=== PATIENT | female | born 1975 | race Caucasian/White ===

== ENCOUNTER → 2018-03-16 16:44 | Outpatient (CLI) | payer MEDICAID, SELFPAY ==
[2018-03-16 19:02] LABS: Chlamydia Trachomatis by PCR Negative (Negative); Neisserai gonorrhoeae by PCR Negative (Negative); Probe Check PASS; Sample Adequacy Control PASS; Specimen Processing Control PASS
== END ==
PROVIDERS: Visit Provider Obstetrics & Gynecology
DX: Z11.3 Encounter for screening for infections with a predominantly sexual mode of transmission (principal)
CPT/HCPCS: 87491; 87591

== ENCOUNTER → 2018-04-13 10:41 | Outpatient (CLI) | payer MEDICAID, SELFPAY ==
[2018-04-13 13:39] LABS: Absolute Lymphocyte Count 1.23 X10^3/ul (0.83-4.51); Absolute Neutrophil Count 8.4 X10^3/uL (2.0-7.7); Basophil# 0.02 X10^3/uL; Basophil% 0.2 % (0-1); Eosinophil# 0.05 X10^3/uL; Eosinophils% 0.5 % (0-5); Hematocrit 40.6 % (37-47); Hemoglobin 13.5 g/dl (12.0-15.0); Lymphocyte # 1.23 X10^3/ul (4.0); Mean Corp Hgb Conc 33.3 g/gl (32-36); Mean Corpuscular Hgb 28.8 pg (27.0-32.0); Mean Corpuscular Volume 86.6 fL (81-99); Mean Platelet Vol. 10.1 fl (6.2-12.0); Monocyte# 0.49 X10^3/uL; Monocyte% 4.8 % (0-10); Neutrophil # 8.42 X10^3/uL (2.7-7.7); Neutrophil % 82.4 % (47-70); POSITIVE COUNT NO; POSITIVE DIFFERENTIAL NO; POSITIVE MORPHOLOGY NO; Platelet Count 251 K/mm3 (150-450); RBC Distribution Width CV 14.1 % (11.6-14.6); RBC Distribution Width SD 44.1 fl (35.1-43.9); Red Blood Count 4.69 M/mm3 (4.2-5.4); White Blood Count 10.2 K/mm3 (4.4-11.0)
[2018-04-13 13:41] LABS: Color, Urine Yellow (Yellow); Glucose, Dipstick Normal (Normal); Ketone-Dipstick Negative (Negative); Leukocyte Esterase-Dipstick Negative /ul (Negative); Nitrite-Dipstick Negative (Negative); Occult Blood-Urine Negative /ul (Negative); Protein-Dipstick Negative (Negative); Specific Gravity, Urine 1.005 (1.002-1.030); Urine Bilirubin Dipstick Negative (Negative); Urine Clarity Clear (Clear); Urine Urobilinogen Normal (Normal)
[2018-04-13 13:56] LABS: Amphetamine Urine VISTA NEGATIVE (<1000 ng/mL); Barbiturate Urine VISTA NEGATIVE (< 200 ng/mL); Benzodiazepine Urine VISTA NEGATIVE (< 200 ng/mL); Cocaine Urine VISTA NEGATIVE (< 300 ng/mL); Ecstacy Urine VISTA NEGATIVE (< 500 ng/mL); Methadone Urine VISTA NEGATIVE (< 300 ng/mL); PCP Urine VISTA NEGATIVE (< 25 ng/mL); THC Urine VISTA NEGATIVE (< 50 ng/mL); Vista UDS pH Range 7
[2018-04-13 14:02] LABS: Thyroid Stim Hormone (TSH) 0.96 uIU/mL (0.358-3.74)
[2018-04-13 14:43] LABS: HIV - WCH Non-Reactive (Nonreactive); Rubella IgG 87.5 IU/mL
[2018-04-14 03:04] LABS: COTININE Drug Screen Positive (<200 ng/mL)
[2018-04-14 11:13] LABS: HEPATITIS B SURFACE AG Negative (Negative); Hep C Antibodies <0.1 s/co ratio (0.0-0.9)
[2018-04-19 22:00] LABS: Prenatal RPR NONREACTIVE (NONREACTIVE)
== END ==
PROVIDERS: Visit Provider Obstetrics & Gynecology
DX: Z34.82 Encounter for supervision of other normal pregnancy, second trimester (principal)
CPT/HCPCS: 36415; 80307; 81002; 84443; 85025; 86703; 86762; 86803; 87340

== ENCOUNTER → 2018-06-11 | Outpatient (CLI) | payer MEDICAID, SELFPAY ==
[2018-06-11 12:56] LABS: Hematocrit 33.7 % (37-47); Hemoglobin 11.3 g/dl (12.0-15.0); Mean Corp Hgb Conc 33.5 g/gl (32-36); Mean Corpuscular Hgb 28.9 pg (27.0-32.0); Mean Corpuscular Volume 86.2 fL (81-99); Mean Platelet Vol. 9.6 fl (6.2-12.0); Platelet Count 268 K/mm3 (150-450); RBC Distribution Width CV 13.8 % (11.6-14.6); RBC Distribution Width SD 43.1 fl (35.1-43.9); Red Blood Count 3.91 M/mm3 (4.2-5.4); White Blood Count 9.1 K/mm3 (4.4-11.0)
[2018-06-11 12:59] LABS: Scan Indicated on CBC? Y/N NO
[2018-06-11 13:12] LABS: Glucose Challenge Gest 1H 50g 104 mg/dL (70-140)
== END | disposition home or self-care (01) ==
LOC: LABSPEC 11:32
PROVIDERS: Visit Provider Obstetrics & Gynecology
DX: Z34.83 Encounter for supervision of other normal pregnancy, third trimester (principal)
CPT/HCPCS: 82950; 85027

== ENCOUNTER → 2018-08-06 | Outpatient (CLI) | payer MEDICAID, SELFPAY | END | disposition home or self-care (01) | LOC: LABSPEC 15:16 | PROVIDERS: Visit Provider Obstetrics & Gynecology | DX: Z36.85 Encounter for antenatal screening for Streptococcus B (principal) | CPT/HCPCS: 87081 ==

== ENCOUNTER 2018-08-14 22:26 | Inpatient (IN) | payer MEDICAID, SELFPAY ==
--- NOTE | 2018-08-14 23:28 | PCM.HPOB.BLA ---
History and Physical Date of Admission: 08/14/18 OB HISTORY AND PHYSICAL EXAMINATION History of this : 42 yo female Ab1 with EDC 09/02/2018 by Ultrasound, presents to Labor and Delivery at 3 71/7 wk with SROM. Denies painful UCs. Baby is breech. care remarkable for: O positive Rubella immune GBS negative. 1.) STERILIZATION REQUEST 2.) AMA -- declined testing including MSAFP, , cfDNA testing 3.) SO/FOB has three children,ages 9, 15, and 29 4.) Smoker, wants to quit. 5.) Late PNC. Initial visit at 15 wk 6.) Uterine fibroids, with large lower uterine segment fibroid approx 11 cm. Pertinent Past Medical History: As above. fibroid uterus. Smoker. Allergies: No Known Drug Allergies Medications: During - Gummy 400 mcg-35 mg-25 mg-5 mg chewable tablet Review of Systems: SROM this evening when lying down. PHYSICAL EXAMINATION General Appearance: 42 yo female in no acute distress Vital Signs: AF, VSS Heart: RRR without rubs or gallops Lungs: CTA x 2 Breasts: deferred Abdomen: gravid Pelvis: Cervix: 2cm /high Presentation: BREECH Station: Fetus: Size: AGA Movement: present Heart: present -- 140-150s irreg UCs. Category I tracing. Impression /Plan: Intrauterine 37 1/7 wk EGA with gross ROM. Breech presentation. Admit for primary C section for malpresentation. Also requesting surgical sterilization . Large fibroid at lower uterine segment. Advised C section delivery. Will have bilateral tubal ligation. Possible myomectomy if fibroid if necessary for delivery of baby. reviewed spinal anesthesia. questions answered to her satisfaction. Consents signed. See Progress Notes for Changes: Physician's Signature: Date:
[2018-08-14] MEDS: Lactated Ringers 1,000 ML 999 ML IV (23:30)
[2018-08-14] MEDS: Lactated Ringers 1,000 ML 150 ML IV (23:30)
[2018-08-14 23:54] LABS: Absolute Lymphocyte Count 1.87 X10^3/ul (0.83-4.51); Absolute Neutrophil Count 7.5 X10^3/uL (2.0-7.7); Basophil# 0.02 X10^3/uL; Basophil% 0.2 % (0-1); Eosinophil# 0.09 X10^3/uL; Eosinophils% 0.9 % (0-5); Hematocrit 35.6 % (37-47); Hemoglobin 12.1 g/dl (12.0-15.0); Lymphocyte # 1.87 X10^3/ul (4.0); Lymphocyte % 18.2 % (19-41); Mean Corpuscular Hgb 27.6 pg (27.0-32.0); Mean Corpuscular Volume 81.1 fL (81-99); Mean Platelet Vol. 9.3 fl (6.2-12.0); Monocyte# 0.79 X10^3/uL; Monocyte% 7.7 % (0-10); Neutrophil # 7.51 X10^3/uL (2.7-7.7); Neutrophil % 72.8 % (47-70); Platelet Count 287 K/mm3 (150-450); RBC Distribution Width CV 13.7 % (11.6-14.6); RBC Distribution Width SD 39.7 fl (35.1-43.9); Red Blood Count 4.39 M/mm3 (4.2-5.4); White Blood Count 10.3 K/mm3 (4.4-11.0)
[2018-08-14 23:55] LABS: POSITIVE COUNT NO; POSITIVE DIFFERENTIAL NO; POSITIVE MORPHOLOGY NO
[2018-08-14 23:56] VITALS: BMI 26.0
[2018-08-15] VITALS (21 sets, daily range): BP systolic 94–122; BP diastolic 44–76; PULSE 72–101; RESP 16–20; TEMP 35.8–37.1; O2SAT 97–100
[2018-08-15] MEDS: Sodium Citrate/Citric Acid 30 ML UDC PO (00:16)
[2018-08-15] MEDS: Cefazolin 2 GM in 0.9% Normal Saline 100 ML IV (00:31)
[2018-08-15] MEDS: Oxytocin 30 units/NS 500 ml 30 UNITS/500 ML IV.SOLN 167 UNITS IV (01:15)
[2018-08-15] MEDS: Ketorolac 30 MG/ML Syringe IV ×4 (01:20→19:02)
--- NOTE | 2018-08-15 01:45 | OP.PCM_ITS ---
Report of Operation Date of Procedure: 08/15/18 Pre-Operative Diagnosis: 37 2/7 wk breech, labor SROM Multiple fibroids. Post-Operative Diagnosis: same Description of Surgical Findings:: Enlarged uterus with multiple fibroids. Distended lower uterine segment (fibroid) Breech presentation. Alvarez viable male Ap 8/9 6# 9 oz. etl lead: Felipe Washington Type of Anesthesia:: Spinal Anesthesiologist: Terese Feng MD Specimen's removed: fibroid Placenta Drains: Chang, clear yellow urine Estimated Blood Loss (mL): 1000 Fluids Replaced: LR Delivery Classification: LAKSHMI Final SHEILA: 09/03/18 Final SHEILA Source: US <20 weeks Gestational age: 37 Weeks and 2 Days Indications: Breech, SROM. Labor Indications for : Malpresentation - SROM breech Description of Procedure: Narrative account: After the risks, benefits and alternatives of the procedure were reviewed with the patient, informed consent was obtained. The patient was taken to the Operating room with an IV running, and placed in a seated position on the operating table for placement of the spinal. Once the spinal had been administered, she was briefly frog-legged for Chang catheter placement, and then repositioned to dorsal supine position with leftward displacement of the uterus, and prepped and draped in the usual sterile fashion. Once the spinal was deemed adequate, a Pfannenstiel skin incision was created using the knife and the incision was carried down to the rectus fascia using the knife. The fascia was nicked in the midline. The fascial incision was extended bilaterally using curved Lim scissors. The superior aspect of the fascial incision was grasped with Wen clamps and tented up and the underlying rectus abdominal muscles were dissected free. In a similar manner, the inferior aspect of the facial incision was grasped with Wen clamps tented up and the underlying rectus abdominal muscles were dissected free. The rectus abdominis muscles were in the midline and the peritoneum was identified and entered by blunt dissection high in the incision. The peritoneum was stretched laterally and a bladder blade was inserted. The lower uterine segment was distended and a transverse uterine incision was created, but on continued dissection a large fibroid was encountered The fibroid was removed and set aside. Further inspection then showed an enlarged uterus with fetus near the fundus and multiple other fibroids noted. A vertical midline uterine incision was created using the knife and ultimately the tassel making machine operator's fingertips were used to enter the uterine cavity. Placental tissue was immediately encountered. The tassel making machine operator's hand was placed into the uterine cavity and the feet were identified and brought through the incision. With fundal pressure the baby delivered up to the shoulders. The arms were reduced and the VTX delivered easily through the vertical incision . The OP and nares were bulb suctioned on the abdomen and the cord was clamped times two and cut. The infant was shown briefly to his parents and then passed off to the nurse awaiting delivery. The placenta was manually extracted and set aside. The uterus was cleared of clots and debris. The vertical incision which extended to the anterior uterine fundus was then repaired in multiple layers of 1-0 Vicryl, bringing the myometrium sequentially together until the serosal edges were approximated. A 1-0 Monocryl was hen used to oversew the vertical incision. Multiple figure of eight and interrupted stitches and mattress stitches were then placed in addition for hemostasis. The defect at the lower uterine segment were the myomectomy was initially performed was then closed with multiple layers of 1-0 Vicryl then oversewn with 1-0 Monocryl. Additional stitches of 1-0 Vicryl (figure of eight and mattress stitches) were placed along this area for hemostasis also. Pressure was held over the uterine incisions and the incisions inspected. Adequate hemostasis was noted. Attention was turned to the BTO. A Filshie clip was applied to each fallopian tube near the fundus. There was good blanching effect with clip application. Excellent hemostasis was noted. At this point the uterus was returned to the abdominal cavity. The gutters were cleared of clots and debris and the incision at the uterus was inspected. Tristian was applied along the entire incision for continued hemostasis. Adequate hemostasis was noted. The peritoneal edges and rectus abdominis muscles were reapproximated in the midline with a series of interrupted stitches of 1 Vicryl. Tristian was applied to this layer. Excellent hemostasis was noted at the subfascial space Tristian was dusted over this layer as well. The fascia was closed in a running nonlocked fashion with a Stratofix. The Subcutaneous fatty tissue was Bovie cauterized as needed for hemostasis. Tristian was liberally dusted at this layer to prevent seroma formation. This layer was then reapproximated in a single layer closure of running 3-0 Vicryl to eliminate space. The skin edges were closed in a Subcuticular stitch of 4-0 Monocryl. The incision was cleansed. Cavilon, Steristrips, and Mepilex dressing were applied to the skin . An abdominal binder was then applied for continued pressure over the uterus and lower abdomen. The patient was then transferred to the recovery room bed in stable condition after tolerating the procedure well. Sponge, lap, needle and instrument counts correct times two. Medications given preop and intraoperatively included: Ancef 2 gm given orthodontist assistant to the operating room. The patient also received Pitocin given IV after cord clamp, and Toradol 30 mg IV times one. For a complete listing of medications given preop and intraoperatively, please see the anesthesia record. Amniotic Membrane Rupture Type: Spontaneous Amniotic Fluid Description: Clear Placenta Disposition: [facility] Specimen(s) sent to pathology: uterine fibroid from lower uterine segment Drain: Chang to straight drain Cord Entanglement: None Esitmated Blood Loss (ml): 1000 Gender: Male (1 minute): 8 (5 minute): 9 Delayed cord clamping: No Pre-op Antibiotic Given: Ancef 2 grams IV x1 Pt instructed on risks of surgery: Bleeding, Infection, Permanency, Failure Rate of 1 to 2% Complications: None - Admit VTE Documentation VTE Present on Admission: No VTE Mechan Device Prophylaxis: SCD's VTE Pharm Prophylaxis ordered?: No
--- NOTE | 2018-08-15 02:30 | TISS_PTH ---
PATIENT: JOSE ANDINO LOC: [facility] U#:[id number] AGE/SX: 42/F ROOM: WP009 RE08/14/[address]: Dr. Mary Brown MD : 1975 BED: 1 DIS: 08/18/2018 SPEC #: [id number] RECD: 08/15/18 06:54 STATUS: WOODROW WILLI #: [id number] JC: 08/15/18 02:[address]: Mary Brown DEPT: SURGICAL PATHOLOGY RECD BY: Silviano Ko Tissues: TISSUE SURGICALLY REMOVED Procedures: Surgery Specimen Level IV HEADER OPERATION: Not noted PRE-OP DIAGNOSIS: Leiomyoma TISSUE SUBMITTED: Fibroids MICROSCOPIC DIAGNOSIS Fibroids: Leiomyoma (11 cm in greatest dimension) with degenerative and reactive changes. ALEXANDRA:anil 08/16/18 COMMENT Case has been reviewed in consultation with Dr. Valenzuela who concurs with the above diagnosis. IDC:AM MICROSCOPIC DESCRIPTION Slides are reviewed. GROSS DESCRIPTION Received is one container labeled with the patient's name and not further designated. The specimen consists of a mustafa, indurated piece of tissue weighing 395 gm and measures 11 x 10 x 8 cm. Sections of this mass reveals mustafa whorled cut surfaces without areas of hemorrhage, necrosis or cystic degeneration. Focal areas of yellowish degenerative changes are noted. Legal Cashier sections are submitted in four cassettes. / SJ:anil 08/15/18 TC:1 CPT: 16985
[2018-08-15] MEDS: Lactated Ringers 1,000 ML 100 ML IV (03:28)
[2018-08-15 06:16] LABS: Hematocrit 31.1 % (37-47); Hemoglobin 10.5 g/dl (12.0-15.0); Mean Corp Hgb Conc 33.8 g/gl (32-36); Mean Corpuscular Hgb 27.7 pg (27.0-32.0); Mean Corpuscular Volume 82.1 fL (81-99); Mean Platelet Vol. 9.2 fl (6.2-12.0); Platelet Count 224 K/mm3 (150-450); RBC Distribution Width CV 13.8 % (11.6-14.6); RBC Distribution Width SD 41.3 fl (35.1-43.9); Red Blood Count 3.79 M/mm3 (4.2-5.4); White Blood Count 15.7 K/mm3 (4.4-11.0)
[2018-08-15 06:17] LABS: Scan Indicated on CBC? Y/N NO
--- NOTE | 2018-08-15 08:31 | PN.OBGYN_ITS ---
Subjective: POD#0 Day of delivery Doing ok. Pain control adequate. Wearing abdominal binder. Plans to bottle feed. States did not make enough milk with any of her babies. Objective: Lomeli in place concentrated urine in bag, clearing in tubing. SCDs in place. Abdominal binder in place. - Physical Exam General: Alert, Oriented x3, Cooperative, No apparent distress HEENT: Atraumatic Neck: Supple Abdomen: Soft - Fundus firm at 1-2 cm inferior to umbilicus. Tender c/w postop status. Abdomen softly distended and tympanitic. Skin: Incision - Pressure dressing in place. No shadow drainage noted. Neurological: Cranial nerves II-XII grossly intact Psych/Mental Status: Normal Affect Vital Signs Temp Pulse Resp BP Pulse Ox 97.0 F L 90 20 H 111/58 L 98 08/15/18 06:00 08/15/18 07:03 08/15/18 07:03 08/15/18 06:00 08/15/18 07:03 Oxygen Delivery Method Room Air Weight: 74.4 kg Body Mass Index (BMI) 26.0 Intake and Output for Last 24 Hours 08/13/18 08/14/18 08/15/18 23:59 23:59 23:59 Intake Total 2515 / 2515 Output Total 350 / 350 Balance 2165 / 2165 Laboratory Tests Past 24 Hrs 08/14/18 08/14/18 08/15/18 23:30 23:30 06:00 WBC 10.3 15.7 H RBC 4.39 3.79 L Hgb 12.1 10.5 L Hct 35.6 L 31.1 L MCV 81.1 82.1 MCH 27.6 27.7 MCHC 34.0 33.8 RDW 13.7 13.8 RDW Differential 39.7 41.3 Plt Count 287 224 MPV 9.3 9.2 Immature Gran % (Auto) 0.200 Neut % (Auto) 72.8 H Lymph % (Auto) 18.2 L [place] % (Auto) 7.7 Eos % (Auto) 0.9 Baso % (Auto) 0.2 Absolute Neuts (auto) 7.5 Absolute Lymphs (auto) 1.87 Total Counted Not Reportable Blood Type O POSITIVE Antibody Screen NEGATIVE Medical Necessity - Tobacco Use Smoking Status: Heavy Smoker (>10/day) Assessment/Plan POD#0 Day of Delivery. Primary CLASSICAL C section. Myomectomy. Bilateral tubal ligation, Filshie clips Reviewed all surgical findings with patient. Multiple fibroids. Unaware of these until ultrasounds with . reviewed natural course of fibroids and involution anticipated with menopause. Stable postop. Repeat CBC POD#1 am. Inc diet and activity as tolerated. May d/c lomeli later today. S/L IV for continued Toradol. Begin po meds prn Plan to remove pressure dressing tomorrow AM Continue care
--- NOTE | 2018-08-15 08:31 | PCM.DCCSEC ---
Discharge Diet: No Restrictions Discharge Activity: May not drive while taking narcotic pain medications., May Shower, May Take a Tub Bath Return to work on:: 10/08/18 May resume sexual activity in: 4-6 weeks Lifting Restrictions: 20 pounds Additional Activity Instructions:: Nothing in the vagina for 4-6 weeks. You may return to work/school in 6 weeks. Change Dressing in (Days):: 7 Remove Dressing in (days):: 7 Cleanse incision/area with: Soap & Water, Keep Dressing Clean & Dry Additional Instructions: If you experience any of the following, contact your healthcare provider. Bleeding that soaks a pad every hour for 2 hours Fever 100.4 or higher Unrelieved incision or abdominal pain Swelling, redness, discharge or bleeding from your incision Problems urinating (including inability to urinate or burning while urinating). Visual changes Severe headache Flu-like symptoms Pain or redness in one of both of your breasts Pain, warmth, tenderness or swelling in your legs, especially the calf area Frequent nausea and vomiting Symptoms of depression or anxiety If you experience any of the following, call 911 or go to the nearest Emergency Room. Chest pain Problems breathing Seizure activity Partial or complete paralysis of a body part, slurred speech, weakness or drooping of the face, or a sudden inability to walk or hold your balance Allergies/Adverse Reactions: Allergies No Known Allergies Allergy (Verified 08/14/18 23:54) Medications to take at Discharge RX: No.137/Iron/Folic Acd [ Vitamin Tablet] 1 each PO DAILY 08/14/18 Docusate Sodium [Colace] 100 mg PO BID #30 capsule 08/15/18 Naproxen [Naprosyn] 250 - 500 mg PO TID PRN PRN #30 tablet 08/15/18 Oxycodone [Oxyir] 5 - 10 mg PO Q6H PRN PRN 7 Days #20 tablet 08/15/18 Polyethylene Glycol 3350 [Miralax] 17 gm PO DAILY PRN #14 packet 08/15/18 RX: Acetaminophen [Tylenol] 1,000 mg PO Q8H PRN tablet 08/15/18 The following prescriptions were given: Oxycodone [Oxyir] 5 - 10 mg PO Q6H PRN PRN 7 Days #20 tablet PRN Reason: Mod-Severe Pain (-12/13) Naproxen [Naprosyn] 250 - 500 mg PO TID PRN PRN #30 tablet PRN Reason: Mild-Mod Pain (1-07/13) Polyethylene Glycol 3350 [Miralax] 17 gm PO DAILY PRN #14 packet PRN Reason: Constipation Docusate Sodium [Colace] 100 mg PO BID #30 capsule Follow-Up: Call to make an appointment with your doctor for an incision check in 1-2 weeks. You will also need a 6 week post- follow up appointment. Test results from this visit will be discussed in further detail at your follow-up appointment, if applicable. Please Follow Up With: Mary Brown MD - [phone] When: Call to make an appointment for an incision check in 2 weeks. Primary Care Physician: Mary Brown MD [Primary Care Provider] - Proposed Discharge Date: 08/18/18
--- NOTE | 2018-08-15 08:35 | DCINST_ITS ---
Discharge Diet: No Restrictions Discharge Activity: May not drive while taking narcotic pain medications., May Shower, May Take a Tub Bath Return to work on:: 10/08/18 May resume sexual activity in: 4-6 weeks Lifting Restrictions: 20 pounds Additional Activity Instructions:: Nothing in the vagina for 4-6 weeks. You may return to work/school in 6 weeks. Change Dressing in (Days):: 7 Remove Dressing in (days):: 7 Cleanse incision/area with: Soap & Water, Keep Dressing Clean & Dry Additional Instructions: If you experience any of the following, contact your healthcare provider. * Bleeding that soaks a pad every hour for 2 hours * Fever 100.4 or higher * Unrelieved incision or abdominal pain * Swelling, redness, discharge or bleeding from your incision * Problems urinating (including inability to urinate or burning while urinating). * Visual changes * Severe headache * Flu-like symptoms * Pain or redness in one of both of your breasts * Pain, warmth, tenderness or swelling in your legs, especially the calf area * Frequent nausea and vomiting * Symptoms of depression or anxiety If you experience any of the following, call 911 or go to the nearest Emergency Room. * Chest pain * Problems breathing * Seizure activity * Partial or complete paralysis of a body part, slurred speech, weakness or drooping of the face, or a sudden inability to walk or hold your balance Allergies/Adverse Reactions: Allergies No Known Allergies Allergy (Verified 08/14/18 23:54) Medications to take at Discharge RX: No.137/Iron/Folic Acd [ Vitamin Tablet] 1 each PO DAILY 08/14/18 Docusate Sodium [Colace] 100 mg PO BID #30 capsule 08/15/18 Naproxen [Naprosyn] 250 - 500 mg PO TID PRN PRN #30 tablet 08/15/18 Oxycodone [Oxyir] 5 - 10 mg PO Q6H PRN PRN 7 Days #20 tablet 08/15/18 Polyethylene Glycol 3350 [Miralax] 17 gm PO DAILY PRN #14 packet 08/15/18 RX: Acetaminophen [Tylenol] 1,000 mg PO Q8H PRN tablet 08/15/18 The following prescriptions were given: Oxycodone [Oxyir] 5 - 10 mg PO Q6H PRN PRN 7 Days #20 tablet PRN Reason: Mod-Severe Pain (4-12/13) Naproxen [Naprosyn] 250 - 500 mg PO TID PRN PRN #30 tablet PRN Reason: Mild-Mod Pain (1-5) Polyethylene Glycol 3350 [Miralax] 17 gm PO DAILY PRN #14 packet PRN Reason: Constipation Docusate Sodium [Colace] 100 mg PO BID #30 capsule Follow-Up: Call to make an appointment with your doctor for an incision check in 1-2 weeks. You will also need a 6 week post- follow up appointment. Test results from this visit will be discussed in further detail at your follow- up appointment, if applicable. Please Follow Up With: Mary Brown MD - [phone] When: Call to make an appointment for an incision check in 2 weeks. Primary Care Physician: Mary Brown MD [Primary Care Provider] - Proposed Discharge Date: 08/18/18
[2018-08-15] MEDS: 0.9% Saline Lock 10 ML Syringe IV ×2 (12:58→19:01)
[2018-08-15] MEDS: Acetaminophen 500 MG Tablet 1000 MG PO (20:56)
[2018-08-16 00:52] VITALS: BP 105/65; PULSE 91; RESP 18; TEMP 36.1
[2018-08-16] MEDS: 0.9% Saline Lock 10 ML Syringe IV ×4 (01:01→18:51)
[2018-08-16] MEDS: Ketorolac 30 MG/ML Syringe IV ×4 (01:01→18:51)
[2018-08-16 04:10] VITALS: BP 110/69; PULSE 83; RESP 18; TEMP 36.5
[2018-08-16 06:19] LABS: Hemoglobin 8.2 g/dl (12.0-15.0); Mean Corp Hgb Conc 32.8 g/gl (32-36); Mean Corpuscular Volume 82.2 fL (81-99); Mean Platelet Vol. 9.2 fl (6.2-12.0); Platelet Count 200 K/mm3 (150-450); RBC Distribution Width CV 13.5 % (11.6-14.6); RBC Distribution Width SD 38.4 fl (35.1-43.9); Red Blood Count 3.04 M/mm3 (4.2-5.4); White Blood Count 11.7 K/mm3 (4.4-11.0)
[2018-08-16 06:23] LABS: Scan Indicated on CBC? Y/N NO
[2018-08-16 08:00] VITALS: BP 127/76; PULSE 74; RESP 17; TEMP 36.6; O2SAT 98
--- NOTE | 2018-08-16 08:01 | PCM.PN.OB ---
Subjective: POD#1 CLASSICAL C Section myomectomy. SROM 37 + wk breech Sore. Continued cough Painful at incision with cough, movement. Some intermittent shoulder/R neck pain. No N/V Chang out and going urinating ok. Bottle feeding. States she think she overdid it yesterday with infant care, busy unit and nurses also busy so she was doing more. - Physical Exam General: Alert, Oriented x3, Cooperative, No apparent distress HEENT: Atraumatic Neck: Supple Abdomen: Soft - Softly distended , tympantic. Uterine fundus at umbilicus, tender c/w postop status. Skin: Incision - Cover dressing removed. Sterstrips in place, dry, intact. Old dischg at midportion. Neurological: Cranial nerves II-XII grossly intact Psych/Mental Status: Normal Affect Vital Signs Temp Pulse Resp BP Pulse Ox 97.7 F L 83 18 110/69 97 08/16/18 04:10 08/16/18 04:10 08/16/18 04:10 08/16/18 04:10 08/15/18 17:02 Oxygen Delivery Method Room Air Weight: 74.4 kg Body Mass Index (BMI) 26.0 Intake and Output for Last 24 Hours 06/11/19 /12/19 // 23:59 23:59 23:59 Intake Total 4406 / 4406 Output Total 2700 / 2700 350 / 350 Balance 1706 / 1706 -350 / -350 Laboratory Tests Past 24 Hrs // 06:05 WBC 11.7 H RBC 3.04 L Hgb 8.2 L Hct 25.0 L MCV 82.2 MCH 27.0 MCHC 32.8 RDW 13.5 RDW Differential 38.4 Plt Count 200 MPV 9.2 Medical Necessity - Tobacco Use Smoking Status: Heavy Smoker (>10/day) Assessment/Plan POD#1 Primary CLASSICAL C section. Myomectomy. Bilateral tubal ligation, Filshie clips Stable postop. CBC this am as anticipated with blood loss of surgery. First likely not yet equilibrated. WBCs improved, normalizing and remains afeb. Repeat CBC POD#2 am. Cough, smoker. Continue C and DB, inhaler, IS. Encourage ambulation. AFEB and WBCs normalizing. No CXR at this time. Inc diet and activity as tolerated. Continued Toradol today. Continue care
[2018-08-16] MEDS: Prenatal Vits Tablet 1 TABLET PO (11:07)
[2018-08-16] MEDS: Acetaminophen 500 MG Tablet 1000 MG PO ×2 (11:07→20:40)
[2018-08-16] MEDS: Ferrous Gluconate 324 MG Tablet PO ×2 (11:08→18:51)
[2018-08-16] MEDS: Senna/Docusate Sodium 1 Tablet PO (12:56)
[2018-08-16 14:00] VITALS: BP 115/72; PULSE 81; RESP 17; TEMP 36.6; O2SAT 99
[2018-08-16 14:54] LABS: Pathology Specimen OB SEE PATHOLOGY REPORT
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
[2018-08-16 20:40] VITALS: BP 133/69; PULSE 76; RESP 18; TEMP 37.5
[2018-08-16] MEDS: Bisacodyl 10 MG Suppository RECTAL (20:51)
[2018-08-17 02:25] VITALS: BP 114/62; PULSE 72; RESP 16; TEMP 36.6
[2018-08-17] MEDS: Naproxen 250 MG Tablet PO ×2 (02:29→17:43)
--- NOTE | 2018-08-17 02:35 | NURSING ---
08/16/18 2330 discharge pending son's status infant has been transferred to [facility] so mother not leaving at this time.
[2018-08-17 05:18] LABS: Hematocrit 23.9 % (37-47); Hemoglobin 8.1 g/dl (12.0-15.0); Mean Corp Hgb Conc 33.9 g/gl (32-36); Mean Corpuscular Hgb 27.9 pg (27.0-32.0); Mean Corpuscular Volume 82.4 fL (81-99); Mean Platelet Vol. 8.6 fl (6.2-12.0); Platelet Count 195 K/mm3 (150-450); RBC Distribution Width CV 13.8 % (11.6-14.6); RBC Distribution Width SD 41.3 fl (35.1-43.9); White Blood Count 11.6 K/mm3 (4.4-11.0)
[2018-08-17 05:32] LABS: Scan Indicated on CBC? Y/N NO
[2018-08-17] MEDS: Acetaminophen 500 MG Tablet 1000 MG PO (07:43)
[2018-08-17 07:52] VITALS: BP 110/68; PULSE 75; RESP 18; TEMP 36.7
--- NOTE | 2018-08-17 08:30 | PCM.PN.OB ---
Subjective: POD#2 S/P classical C/S for malpresentation Breech SROM Multiple uterine fibroids Dropped baby last pm while drifting off to sleep. Infant in SCN for observation today. CT and clinical exam neg for fracture or bleed into cranium. States plan for baby is to monitor for 12-24 hr from event. Not sure if baby is going to be released today. Would like to go home if baby is released. Pt doing better. Passing some flatus after suppository given. Less sore today than POD#1 States trying to be up and moving more. Objective: Sitting up in rocker. - Physical Exam General: Alert, Oriented x3, Cooperative, No apparent distress HEENT: Atraumatic Neck: Supple Abdomen: Soft - Softly distended, less tympanitic than yesterday. Fundus firm, tender c/w postop status, and at umbilicus Skin: Incision - CDI. steristrips with old dischg at midportion Neurological: Cranial nerves II-XII grossly intact Psych/Mental Status: Normal Affect, Appropriate Vital Signs Temp Pulse Resp BP Pulse Ox 98.0 F 75 18 110/68 99 // 07:52 // 07:52 08/17/18 07:52 08/17/18 07:52 08/16/18 14:00 Oxygen Delivery Method Room Air Weight: 74.4 kg Body Mass Index (BMI) 26.0 Intake and Output for Last 24 Hours 06/12/19 //08/17/ 23:59 23:59 23:59 Intake Total 4406 / 4406 200 / 200 Output Total 2700 / 2700 1350 / 1350 Balance 1706 / 1706 -1150 / -1150 Laboratory Tests Past 24 Hrs // 05:08 WBC 11.6 H RBC 2.90 L Hgb 8.1 L Hct 23.9 L MCV 82.4 MCH 27.9 MCHC 33.9 RDW 13.8 RDW Differential 41.3 Plt Count 195 MPV 8.6 Medical Necessity - Tobacco Use Smoking Status: Heavy Smoker (>10/day) Assessment/Plan POD#2 Primary CLASSICAL C section. Myomectomy. Bilateral tubal ligation, Filshie clips Stable postop. CBC this am stable from POD#1 CBC. WBCs improving , normalizing and remains afeb. Cough, smoker. Continue C and DB, inhaler, IS. AFEB and WBCs normalizing. Continue care
--- NOTE | 2018-08-17 08:42 | DS.PCM_ITS ---
Discharge Date and Diagnosis Date of Admission: 08/14/18 - Labor , breech, SROM Date of Discharge: 08/17/18 - S/P primary Classical C/S myomectomy Hospital Course and Treatment Summary of Care Provided: The patient is a 42 year old female at 37 + wk with known breech presentation and uterine fibroids. Presents to L and D with CC of gush of fluid. SROM confirmed. Admitted for primary C/S due to malpresentation. Sterilization request also. Aware of R,B,A of surgical sterilization and federal consents for BTO signed more than 30 d prior. Admitted for C/S Pfannenstiel incision created at skin. Operative findings and course: Large fibroid noted in lower uterine segment and excised. Vertical classical incision then created for breech delivery of fetus at uterine fundus. Alvarez viable male Ap 8/9 delivery footling breech. Baby weight 6# 9 oz. Uterine incisions repaired in multiple layers of 1-0 Vicryl and 1-0 Monocryl for hemostasis EBL 1000 cc Pt postop course as follows; Hgb 12.1 to 8.2 to 8.1 g/dl. WBCs 15,700 dec to 11,600 by POD#2 Pt AFEB stable VS. Exam benign with incision CDI. Steristrip in place By POD#2 considering dischg home. [facility] after fall from his mother's arms from bed to floor. CT of baby and physical exam showed no fracture and no intracranial bleed/pathology. Baby to be monitored for 12-24 hrs and then may consider discgh Dischg home in stable condition RTO in 2 wk for postop incision check, prn sooner. - Physical Exam Vital Signs Temp Pulse Resp BP Pulse Ox 98.0 F 75 18 110/68 99 08/17/18 07:52 08/17/18 07:52 08/17/18 07:52 08/17/18 07:52 08/16/18 14:00 Oxygen Delivery Method Room Air Weight: 74.4 kg Body Mass Index (BMI) 26.0 Intake and Output for Last 24 Hours 08/15/18 08/16/18 08/17/18 23:59 23:59 23:59 Intake Total 4406 / 4406 200 / 200 Output Total 2700 / 2700 1350 / 1350 Balance 1706 / 1706 -1150 / -1150 Laboratory Tests Past 24 Hrs 08/17/18 05:08 WBC 11.6 H RBC 2.90 L Hgb 8.1 L Hct 23.9 L MCV 82.4 MCH 27.9 MCHC 33.9 RDW 13.8 RDW Differential 41.3 Plt Count 195 MPV 8.6 Discharge Diet: No Restrictions Discharge Activity: May not drive while taking narcotic pain medications., May Shower, May Take a Tub Bath Return to work on:: 10/08/18 May resume sexual activity in: 4-6 weeks Additional Activity Instructions:: Nothing in the vagina for 4-6 weeks. You may return to work/school in 6 weeks. Change Dressing in (Days):: 7 Remove Dressing in (days):: 7 Cleanse incision/area with: Soap & Water, Keep Dressing Clean & Dry Home Medications: Medications to take at Discharge No.137/Iron/Folic Acd [ Vitamin Tablet] 1 each PO DAILY 08/14/18 Acetaminophen [Tylenol] 1,000 mg PO Q8H PRN tablet 08/15/18 Docusate Sodium [Colace] 100 mg PO BID #30 capsule 08/15/18 Naproxen [Naprosyn] 250 - 500 mg PO TID PRN PRN #30 tablet 08/15/18 Oxycodone [Oxyir] 5 - 10 mg PO Q6H PRN PRN 7 Days #20 tablet 08/15/18 Polyethylene Glycol 3350 [Miralax] 17 gm PO DAILY PRN #14 packet 08/15/18 Ferrous Sulfate 325 mg PO BIDCM #60 tablet 08/16/18 Following Prescrptions Were Given to Patient: Oxycodone [Oxyir] 5 - 10 mg PO Q6H PRN PRN 7 Days #20 tablet PRN Reason: Mod-Severe Pain (-12/13) Naproxen [Naprosyn] 250 - 500 mg PO TID PRN PRN #30 tablet PRN Reason: Mild-Mod Pain (1-07/13) Polyethylene Glycol 3350 [Miralax] 17 gm PO DAILY PRN #14 packet PRN Reason: Constipation Docusate Sodium [Colace] 100 mg PO BID #30 capsule Ferrous Sulfate 325 mg PO BIDCM #60 tablet Primary Care Physician: Mary Brown MD [STAFF PHYSICIAN] - Please Follow Up With: Mary Brown MD - [phone] When: Call to make an appointment for an incision check in 2 weeks. Medical Necessity - Tobacco Use Smoking Status: Heavy Smoker (>10/day) Meaningful Use Info Meaningful Use Diagnoses (Choose all that apply): None applicable
[2018-08-17] MEDS: Prenatal Vits Tablet 1 TABLET PO (11:51)
[2018-08-17] MEDS: Ferrous Gluconate 324 MG Tablet PO ×2 (11:51→17:43)
--- NOTE | 2018-08-17 12:30 | CASEMGMT ---
Social Work Labor and Delivery Unit late entry for intervention occurring on 08.17.2018 Date of Intervention:?08/17/2018 Time of Intervention:?[id number] ? Reason for follow up:?Provision of resource information for home going, continued emotional support, and assessment due to baby being admitted to [facility] for head trauma secondary to fall. Summary: Met with mother of baby (MOB) Yvonne Mathis as a follow up to assessment occurring on 08.16.2018. Also notified by nursing staff of baby falling from MOB's arms last evening, and baby being transferred into [facility] for evaluation status post fall. This typewriter operator automatic as the assigned social scientist for [facility] delivery labor and delivery unit also provides social work to the [facility] for continuity of families admitted to the [facility]. [facility] needs for this assessment, and that information can?also be used for current assessment. ?MOB voices agreement. MOB shared that had just nodded off to sleep last evening and baby reportedly slipped from MOB's arms. ??MOB reportedly called nursing for help immediately after incident and MOB had reportedly tried to catch baby before baby completed fall. MOB reporting stress, guilt, and sadness regarding baby falling. ?MOB reports to be working on her coping and acceptance of incident, trying to focus on the positives that baby seems to be doing well, as well as that called for help for the baby as soon as the fall occurred.??MOB reports FOB is a strong support to MOB, and is being helpful and supportive. ? ? Assessment MOB pleasant, cooperative and engaging with this typewriter operator automatic, seeming to want to talk as evidenced by willingness to share thoughts and feelings. MOB held good eye but was tearful when recounting reason for baby?s admission?to the [facility], feelings of guilt and worry for baby, but also trying to stay focused on the positive. ?Reviewed safe sleeping again with MOB and importance of setting baby down in a safe place when feeling tired. ?MOB expressed understanding of this as well as intent to be more vigilant. ?MOB confirms that will have help from FOB at home going, to help with adjustment to having a baby again and during recovery from caesarian section delivery. ?MOB reports to feel able to manage at home.??MOB reports plan to have baby follow up as needed with doctors, and reports to have needed supplies to care for baby at home. ?MOB declines a referral to [facility], after this typewriter operator automatic broached this resource with MOB as another outlet for support in the community. MOB reports to know can call to make referral on own, but plans to have baby follow up with doctors as recommended by [facility] team.???Checked with [facility] staff and no concerns identified by nursing staff or by medical team about parent/child bonding or interactions. ?MOB sought help for baby immediately, has been attentive on unit in care of baby, is expressing love and connection to the baby, as well as intent to have baby remain in medical aftercare as recommended. This typewriter operator automatic broached depression risk again, and discussed that traumatic events and NICU stays can increase risk, so of importance for MOB not to forget about own self care. MOB expressed understanding and appreciation for support offered today. ?MOB accepting of resources lists for [facility] information and applications, and then depression packets provided this date. Packets for mood issues include online and local resources for support options. ? Plan MOB and baby to discharge home from respective units when stable for discharge.??Resources have been provided for home going and MOB able to express understanding of need to use support systems available, and that if symptoms of mood issues arise to call for help.?? ? Response to Plan: MOB?does express understanding of proposed plan. ? NAYELY Goodwin
--- NOTE | 2018-08-17 14:26 | NURSING ---
Dr. Brown office called spoke with Blanca, informed that baby in scn needs to stay another day to be monitored. Asked for order for D/C home to be stopped. Blanca will give message to Dr. Brown so she will round on pt in AM.
[2018-08-17 15:00] VITALS: BP 111/60; PULSE 75; RESP 18; TEMP 37
[2018-08-17 19:55] VITALS: BP 117/62; PULSE 92; RESP 16; TEMP 37.2; O2SAT 97
[2018-08-18 02:38] VITALS: BP 118/65; PULSE 71; RESP 16; TEMP 36.3
--- NOTE | 2018-08-18 09:05 | PN.OBGYN_ITS ---
Subjective: doing well no complaints pain controlled no CP SOB N V ambulating well tolerating po lochia moderate, - Physical Exam General: Alert, Oriented x3 Vital Signs Temp Pulse Resp BP Pulse Ox 97.3 F L 71 16 118/65 97 08/18/18 02:38 08/18/18 02:38 08/18/18 02:38 08/18/18 02:38 08/17/18 19:55 Oxygen Delivery Method Room Air Weight: 164 lb 0.383 oz Body Mass Index (BMI) 26.0 Intake and Output for Last 24 Hours 08/16/18 08/17/18 08/18/18 23:59 23:59 23:59 Intake Total 200 / 200 Output Total 1350 / 1350 Balance -1150 / -1150 Medical Necessity - Tobacco Use Smoking Status: Heavy Smoker (>10/day) Assessment/Plan doing well routine care dc home today, baby being discharged from [facility]
[2018-08-18 09:30] VITALS: BP 117/57; PULSE 79; RESP 16; TEMP 36.8
[2018-08-18 09:35] VITALS: BP 117/57; PULSE 79; RESP 16; TEMP 36.8
[2018-08-18] MEDS: Naproxen 250 MG Tablet PO (09:40)
--- NOTE | 2018-08-18 11:02 | NURSING ---
1000 Anxious to go home. States she feels able to care for herself and her baby. Discharged in wheelchair to car with infant in car seat in her lap.
== END 2018-08-18 10:00 | disposition home or self-care (01) | DRG 540 ==
PROVIDERS: Admitting Provider Obstetrics & Gynecology; Visit Provider Obstetrics & Gynecology
DX: O32.1XX0 Maternal care for breech presentation, not applicable or unspecified (principal); O42.02 Full-term premature rupture of membranes, onset of labor within 24 hours of rupture; O09.523 Supervision of elderly multigravida, third trimester; O34.13 Maternal care for benign tumor of corpus uteri, third trimester; D25.9 Leiomyoma of uterus, unspecified; O99.334 Smoking (tobacco) complicating childbirth; Z3A.37 37 weeks gestation of pregnancy; Z37.0 Single live birth; Z30.2 Encounter for sterilization
CPT/HCPCS: 59050; 85025; 85027; 86850; 86900; 88305; 99218; J7120; A4216; G0378; J2405